=== PATIENT | male | born 1975 | race Caucasian/White ===

== ENCOUNTER 2017-11-10 13:21 | Emergency (ER) | payer SELFPAY ==
[2017-11-10 13:27] VITALS: BP 142/92; PULSE 81; TEMP 98; BMI 22.8
[2017-11-10] MEDS ORDERED: IBUPROFEN 600 MG TABLET (FP) PO ONE ×2 (14:21→14:26)
--- NOTE | 2017-11-10 14:21 | PDOC ---
History of Present Illness - General Chief Complaint: Abscess Boil Stated Complaint: ABSCESS ON CHEST Time Seen by Provider: 11/10/17 14:00 - History of Present Illness Initial Comments: 42-year-old healthy male without any comorbidities presents for evaluation of an abscess which is located on his chest he states it's been there for 10 days and so slowly increasing in severity. He has no other associated symptoms. 11/10/17 14:04 Past History - Past Medical History Allergies/Adverse Reactions: Allergies Allergy/AdvReac Type Severity Reaction Status Date / Time No Known Allergies Allergy Verified 11/10/17 13:24 Home Medications: Ambulatory Orders Cephalexin [Keflex] 500 mg PO QID #40 capsule 11/10/17 Ibuprofen [Motrin -] 600 mg PO TID #30 tablet 11/10/17 Sulfamethoxazole/Trimethoprim [Bactrim Ds -] 1 tab PO BID #14 tablet 11/10/17 COPD: No Other medical history: DENIES. - Suicide/Smoking/Psychosocial Hx Smoking History: Never smoked Review of Systems - Review of Systems Integumentary: Yes: See HPI, Lesions All Other Systems: Reviewed and Negative *Physical Exam - Vital Signs Last Vital Signs Temp Pulse Resp BP Pulse Ox 98 F 81 19 142/92 98 11/10/17 13:24 11/10/17 13:24 11/10/17 13:24 11/10/17 13:24 11/10/17 13:24 - Physical Exam Comments: There is a 2 cm fluctuant area on the mid portion of the skin overlying the sternum erythema and warmth. The normal surrounding skin is normal color and temperature 11/10/17 14:05 Procedures - Incision and Drainage I&D Site: Bilateral: Torso (midline) Betadine cleansed: Yes Anesthesia: 1% Lidocaine Blade Size: 11 Attempts: 1 Iodinated Packin/2 in Complications: none Dressing: Yes Progress: 11/10/17 14:23 Tolerated well *DC/Admit/Observation/Transfer Diagnosis at time of Disposition: Abscess - Discharge Dispostion Disposition: HOME Condition at time of disposition: Stable Decision to Admit order: No - Referrals - Patient Instructions Printed Discharge Instructions: DI for Incision and Drainage of a Skin Abscess Additional Instructions: It's very important few to keep the area clean and dry and leave the dressing in place. Return to the emergency room in 2 days on Friday for packing removal I prescribed few to antibiotics which she should take and finish as well as pain medication which she should take with food. Return to the emergency room prior to 2 days if you have any increasing pain redness swelling or drainage from the area. Return to the emergency room if you develop fever. - Post Discharge Activity
== END 2017-11-10 14:28 | disposition home or self-care (01) ==
LOC: JERFT 13:21
PROC: 0J960ZZ Drainage of Chest Subcutaneous Tissue and Fascia, Open Approach (ICD-10-PCS; principal; 2017-11-10)
DX: L02.213 Cutaneous abscess of chest wall (principal)
CPT/HCPCS: 87070; 87186; 87205; 99281-25

== ENCOUNTER 2017-11-12 13:03 | Emergency (ER) | payer SELFPAY ==
[2017-11-12 13:09] VITALS: BP 128/84; PULSE 82; TEMP 98.3; BMI 22.8
--- NOTE | 2017-11-12 13:40 | PDOC ---
History of Present Illness - General Chief Complaint: Revisit,Wound Recheck Stated Complaint: REVISIT Time Seen by Provider: 11/12/17 13:14 - History of Present Illness Initial Comments: 42-year-old male returns for follow-up visit for removal of packing after a I&D done on the abscess he is feeling well with no complaints. 11/12/17 13:37 Past History - Past Medical History Allergies/Adverse Reactions: Allergies Allergy/AdvReac Type Severity Reaction Status Date / Time No Known Allergies Allergy Verified 11/12/17 13:05 Home Medications: Ambulatory Orders Cephalexin [Keflex] 500 mg PO QID #40 capsule 11/10/17 Ibuprofen [Motrin -] 600 mg PO TID #30 tablet 11/10/17 Sulfamethoxazole/Trimethoprim [Bactrim Ds -] 1 tab PO BID #14 tablet 11/10/17 COPD: No - Suicide/Smoking/Psychosocial Hx Smoking History: Never smoked Have you smoked in the past 12 months: No Information on smoking cessation initiated: No Hx Alcohol Use: No Drug/Substance Use Hx: No Substance Use Type: None Review of Systems - Review of Systems Constitutional: Yes: See HPI All Other Systems: Reviewed and Negative *Physical Exam - Vital Signs Last Vital Signs Temp Pulse Resp BP Pulse Ox 98.3 F 82 18 128/84 100 11/12/17 13:05 11/12/17 13:05 11/12/17 13:05 11/12/17 13:05 11/12/17 13:05 - Physical Exam Comments: Packing was removed from the chest. The area is nonfluctuant normal surrounding skin color and temperature no erythema no tenderness no sensitivity or induration. 11/12/17 13:38 Medical Decision Making - Medical Decision Making Packing was removed. No indication of infection. Dry so dressing was placed. Patient was instructed to follow-up Gen. surgery. As well as a primary care physician. May shower and 48 hours as long as the wound is closed. 11/12/17 13:38 *DC/Admit/Observation/Transfer Diagnosis at time of Disposition: Abscess - Discharge Dispostion Disposition: HOME Condition at time of disposition: Stable Decision to Admit order: No - Referrals Referrals: Percy Valentin MD [Staff Physician] - - Patient Instructions Printed Discharge Instructions: Boil Additional Instructions: Follow-up Gen. surgery in the next 1-2 days for further evaluation and treatment options. Continue the antibiotics from last visit. Return to the emergency room if symptoms worsen or go unresolved prior to follow-up. - Post Discharge Activity
== END 2017-11-12 13:42 | disposition home or self-care (01) ==
LOC: JERFT 13:03
DX: Z48.01 Encounter for change or removal of surgical wound dressing (principal)
CPT/HCPCS: 99281-25